=== PATIENT | female | born 1955 | race African-American/Black ===

== ENCOUNTER 2018-09-19 15:51 | Emergency (ER) | payer OTHER ==
[~2018-09-19] VITALS: Ht 165.1 cm; Wt 113.4 kg
[2018-09-19] MEDS ORDERED: MELOXICAM7.5 MG PO (17:12)
[2018-09-19 17:54] VITALS: BP 171/82
== END 2018-09-19 17:57 | disposition home or self-care (01) ==
LOC: ER 15:51
DX: S80.01XA Contusion of right knee, initial encounter (principal); S40.011A Contusion of right shoulder, initial encounter; R03.0 Elevated blood-pressure reading, without diagnosis of hypertension; W01.0XXA Fall on same level from slipping, tripping and stumbling without subsequent striking against object, initial encounter; Y93.89 Activity, other specified; Y92.89 Other specified places as the place of occurrence of the external cause; Y99.8 Other external cause status

== ENCOUNTER → 2019-04-06 | Outpatient (CLI) | payer OTHER ==
[~2019-04-06] MED LIST: MELOXICAM7.5 MG PO
== END ==
LOC: ULTRA 15:20
DX: S80.12XA Contusion of left lower leg, initial encounter (principal); X58.XXXA Exposure to other specified factors, initial encounter; Y93.9 Activity, unspecified; Y92.89 Other specified places as the place of occurrence of the external cause; Y99.8 Other external cause status

== ENCOUNTER → 2019-07-20 | Outpatient (CLI) | payer OTHER | LOC: RAD 12:11 | DX: M47.816 Spondylosis without myelopathy or radiculopathy, lumbar region (principal); M47.814 Spondylosis without myelopathy or radiculopathy, thoracic region; M47.898 Other spondylosis, sacral and sacrococcygeal region; M17.12 Unilateral primary osteoarthritis, left knee; M50.322 Other cervical disc degeneration at C5-C6 level; M43.13 Spondylolisthesis, cervicothoracic region; W19.XXXA Unspecified fall, initial encounter ==

== ENCOUNTER 2019-09-21 19:55 | Emergency (ER) | payer OTHER ==
[~2019-09-21] VITALS: Ht 165.1 cm; Wt 90.7 kg
[2019-09-21 21:55] VITALS: BP 151/86
== END 2019-09-21 21:55 | disposition home or self-care (01) ==
LOC: ER 19:55
DX: S80.02XA Contusion of left knee, initial encounter (principal); I10 Essential (primary) hypertension; W18.39XA Other fall on same level, initial encounter; Y93.89 Activity, other specified; Y92.89 Other specified places as the place of occurrence of the external cause; Y99.8 Other external cause status